=== PATIENT | male | born 1960 | race Caucasian/White ===

== ENCOUNTER 2023-06-17 20:10 | Emergency (ER) | payer BC, SELFPAY ==
[2023-06-17 20:14] VITALS: BP 109/70
[2023-06-17 20:15] VITALS: BP 109/70
[2023-06-17 20:33] VITALS: BMI 29.5
[2023-06-17 20:36] LABS: Glucose - Point of Care 103 mg/dl (70-99)
--- NOTE | 2023-06-17 20:47 | ED.GENMED ---
History of Present Illness
General
Chief Complaint: Alcohol Problem
Source: patient and police
Exam Limitations: none
Time Seen by Provider: 06/17/23 20:37
Nursing documentation reviewed up to this point in time: agreed with
Travel History
Have you had any contact with someone who has COVID-19?: No
Do you have any symptoms of coronavirus? Fever > 100 degrees, chills, cough, shortness of breath, sore throat, loss of taste or smell, muscle aches, or headache?: No
History of Present Illness
History of Present Illness:
Patient presents to ED, accompanied by police officers, as he had fallen asleep inside his vehicle which was parked outside. Per police academy instructor, patient admits to having had alcohol, but was found to be very unsteady on his feet along with streaks
of blood noted on his left leg. Upon arrival, patient is awake and alert answering questions appropriately. Patient admits to drinking alcohol. Patient states that he fell and hit his leg against a car door. However, patient denies any other
injuries. Denies headache. Denies dizziness. Denies blurred vision. Denies loss of sensation or weakness. Denies abdominal pain. Denies nausea or vomiting. Denies leg pain.
Past History
Past History
ED Past Medical History: GERD, HTN and Hypercholesterolemia
ED Past Surgical History: Orthopedic
Social History
Tobacco: Non-smoker
Drug: None
Review of Systems
Review of Systems
Allergies reviewed?: Yes
All Other Systems: ROS reviewed and negative except as documented in HPI and ROS
Constitutional: Reports no symptoms
EENT: Reports no symptoms
Respiratory: Reports no symptoms
Cardiac: Reports no symptoms
ABD/GI: Reports no symptoms
Musculoskeletal: Reports no symptoms
Skin: Reports other (abrasion)
Neurological: Reports no symptoms
Phy Exam
Physical Exam
Physical Exam:
Physical Exam
General: no apparent distress, not acutely ill. afebrile
Head: nc/at. eomi
Neck: supple. no meningeal signs.
Heart: s1/s2 regular rate and rhythm, no murmur. equal radial pulses.
Lungs: no acute respiratory distress. clear bilaterally
Abdomen: normal bowel sounds. not tender.
Neuro: alert and oriented. no focal neurological deficits
Skin: superficial abrasion noted over left patella without active bleeding.
Psychiatric: well kept. interactive and cooperative
Extremities: no edema. no calf tenderness. normal range of motion
Scores
Withdrawal Assessment of Alcohol
Withdrawal Assessment Completed?: Not applicable
Course
Orders/Labs/Results
Orders:
Abnormal Lab Results
06/17/23
20:35
POC Glucose 103 H mg/dl
(70-99)
06/17/23 20:37
06/17/23 20:37
Vital Signs
Initial and Last Documented VS:
Initial Vital Signs
BP
109/70
06/17/23 20:14
Last Documented Vital Signs
Temp Pulse Resp BP Pulse Ox
98.1 F 60 16 109/70 95
06/17/23 20:15 06/17/23 20:15 06/17/23 20:15 06/17/23 20:15 06/17/23 20:45
MDM/Problems Addressed
MDM/Problems Addressed:
Patient with an acute intoxication, but is otherwise clinically sober answering questions appropriately. No indication for any further imaging studies or any other studies at this time. Patient will be discharged to the care of police academy instructor, who
will drive patient to his house, where he will be received by his spouse.
*Critical Care Note
Total Time (30-74mins, 75-104mins- exclusive of procedures): Not Applicable
ED Attending Note
-
Portions of this chart may have been created with voice recognition software.� Occasional wrong word or��sound alike� substitutions may have occurred due to the inherent limitations of voice recognition software.
Discharge Plan
Departure
Patient Disposition: Home (Routine Discharge)
Date of Disposition: 06/17/23
Time of Disposition: 20:48
Patient with high blood pressure during this ER visit?: Yes
Discharge Problem:
Alcohol intoxication, Abrasion
Instructions: Abrasions ED, Alcohol Intoxication ED
Prescriptions:
No Action
lorazepam 0.5 MG tablet
0.5 mg PO Q4HPRN PRN (Reason: anxiety)
esomeprazole magnesium [Nexium 24HR] 22.3 MG capsule,delayed release(DR/EC)
20 mg PO DAILY
ezetimibe 10 MG tablet
10 mg PO HS
nebivolol 10 MG tablet
10 mg PO DAILY
Activity Restrictions/Additional Instructions:
As discussed, please follow-up with your primary care physician with any further concerns.
Interventions
Interventions:
*Neglect/Abuse Screening Last Done: 06/17/23 21:00
*Nursing Disposition Last Done: 06/17/23 21:25
ED- Neurological Assessment Last Done: 06/17/23 21:00
ED-Psychological Assessment Last Done: 06/17/23 21:00
Discharge Date and Time
Discharge Date/Time: 06/17/23 21:26
== END 2023-06-17 21:26 | disposition home or self-care (01) ==
LOC: EMR 20:10
PROVIDERS: EMERGENCY PHYSICIAN Emergency Medicine
DX: F10.129 Alcohol abuse with intoxication, unspecified (principal); S80.212A Abrasion, left knee, initial encounter; W22.8XXA Striking against or struck by other objects, initial encounter; I10 Essential (primary) hypertension; K21.9 Gastro-esophageal reflux disease without esophagitis; E78.00 Pure hypercholesterolemia, unspecified; F41.9 Anxiety disorder, unspecified; F17.200 Nicotine dependence, unspecified, uncomplicated
CPT/HCPCS: 99283; 82962